=== PATIENT | female | born 1960 | race Caucasian/White ===

== ENCOUNTER 2017-05-14 12:17 | Emergency (ER) | payer MEDICARE, OTHER ==
[2017-05-14] MEDS ORDERED: Nitroglycerin 2% Ointment 1 INCH/1 GM Packet ONE (12:53)
[2017-05-14 12:59] LABS: #Basophils 0.1 thou/uL (0.0-0.2); #Eosinphils 0.3 thou/uL (0.0-0.7); #Lymphocytes 2.8 thou/uL (1.20-3.40); #Monocytes 0.7 thou/uL (0.11-0.59); #Neutrophils 3.2 thou/uL (1.40-6.50); %Eosinophils 4.2 % (0.0-10.0); %Lymphocytes 39.9 % (21.0-51.0); %Monocytes 9.2 % (0.0-10.0); Hematocrit 42.7 % (36.0-47.0); Red Blood Cell (RBC) Count 4.62 mill/uL (4.20-5.40); White Blood Cell (WBC) Count 7.1 thou/uL (4.8-10.8)
--- NOTE | 2017-05-14 13:11 | RAD ---
CHEST ONE VIEW: HISTORY: Chest pain. COMPARISON: Chest, two views, from 10/12/2013. FINDINGS: The lungs are clear. No pneumothorax or effusion. The cardiac silhouette and mediastinal contours are normal. IMPRESSION: No acute cardiopulmonary process. POS: H
[2017-05-14 13:12] LABS: ALT (SGPT) 78 U/L (8-55); AST (SGOT) 74 U/L (5-34); Alkaline Phosphatase 93 U/L (40-150); Anion Gap 14 mmol/L (10-20); BUN (Urea Nitrogen) 4 mg/dL (9.8-20.1); Bilirubin, Total 0.6 mg/dL (0.2-1.2); CK (CPK) 223 U/L (29-168); Calc. Creatinine Clearance 0 mL/min (70-130); Calcium 9.4 mg/dL (7.8-10.44); Carbon Dioxide 26 mmol/L (22-29); Chloride 106 mmol/L (98-107); Estimated GFR-MDRD 83; Globulin 3.6 g/dL (2.4-3.5); Lipase 35 U/L (8-78); Protein, Total 7.4 g/dL (6.0-8.3)
[2017-05-14 13:15] LABS: Troponin I Less than 0.010 ng/mL (< 0.028)
[2017-05-14] MEDS ORDERED: Lidocaine Viscous Sol 2% 15 ml UD Cup ONE (13:51)
[2017-05-14] MEDS ORDERED: Famotidine/PF 20 mg/2ml Vial ONE (13:51)
[2017-05-14] MEDS ORDERED: Mag-Al Plus 1200 MG/1200 MG/120 MG/30 ML UDCUP ONE (13:52)
[2017-05-14] MEDS ORDERED: Clopidogrel Bisulfate 75 MG TAB ONE (14:15)
== END 2017-05-14 15:20 | disposition short-term general hospital (02) ==
LOC: SCSER 12:17
DX: I10 Essential (primary) hypertension (principal); I25.10 Atherosclerotic heart disease of native coronary artery without angina pectoris; F41.9 Anxiety disorder, unspecified; F31.9 Bipolar disorder, unspecified; F43.10 Post-traumatic stress disorder, unspecified; Z72.0 Tobacco use; Z71.6 Tobacco abuse counseling
CPT/HCPCS: 71010; 80053; 82553; 83690; 84484; 85025; 93005; 96374; S0028